=== PATIENT | female | born 1990 | race Two or more races ===

== ENCOUNTER → 2020-07-13 09:01 | Outpatient (CLI) | payer OTHER ==
[~2020-07-13 09:01] MED LIST: COLACE100 MG PO; PERCOCET 5/3251 TAB PO
== END | disposition home or self-care (01) ==
LOC: LAB 09:01
PROVIDERS: ATTEND Obstetrics & Gynecology
DX: E04.1 Nontoxic single thyroid nodule (principal); N95.1 Menopausal and female climacteric states; E55.9 Vitamin D deficiency, unspecified; E78.00 Pure hypercholesterolemia, unspecified; E28.39 Other primary ovarian failure

== ENCOUNTER 2020-07-13 15:33 | Outpatient (CLI) | payer OTHER | END 2020-07-13 15:43 | disposition home or self-care (01) | LOC: MAMO-SONO 15:33 | PROVIDERS: ATTEND Surgery | DX: N60.11 Diffuse cystic mastopathy of right breast (principal); N60.12 Diffuse cystic mastopathy of left breast ==

== ENCOUNTER 2023-05-13 12:39 | Outpatient (CLI) | payer OTHER | END 2023-05-13 12:53 | disposition home or self-care (01) | LOC: MAMO-SONO 12:39 | PROVIDERS: ATTEND Obstetrics & Gynecology | DX: Z12.31 Encounter for screening mammogram for malignant neoplasm of breast (principal); N60.11 Diffuse cystic mastopathy of right breast; N60.12 Diffuse cystic mastopathy of left breast ==